=== PATIENT | male | born 1980 | race Two or more races ===

== ENCOUNTER 2020-05-01 13:05 | Emergency (ER) | payer SELFPAY ==
[~2020-05-01] VITALS: Ht 165.1 cm; Wt 86.0 kg
[2020-05-01 14:05] VITALS: BP 155/93
--- NOTE | 2020-05-01 14:59 | PHYS DOC ---
Past Medical History Past Medical History: No Pertinent History Past Surgical History: No Surgical History Smoking Status: Never Smoker Alcohol Use: None General Adult EDM: Chief Complaint: NOSEBLEED HPI: HPI: Patient is a 39 year old male with no significant medical history who presents to the ED today complaining of nosebleeding. Patient reports he picked his nose sometime this morning and started bleeding from the right nose. He states the bleeding stopped and restarted a couple hours later. Patient denies being on any blood thinner. Denies any coughing or congestion. Denies any history of hypertension. Patient is not bleeding in the ED. Review of Systems: Review of Systems: Constitutional: Denies fever or chills. [] Eyes: Denies change in visual acuity. [] HENT: Reports bleeding from the right nose. Denies nasal congestion or sore throat. [] Respiratory: Denies cough or shortness of breath. [] Cardiovascular: Denies chest pain or edema. [] GI: Denies abdominal pain, nausea, vomiting, bloody stools or diarrhea. [] : Denies dysuria. [] Musculoskeletal: Denies back pain or joint pain. [] Integument: Denies rash. [] Neurologic: Denies headache, focal weakness or sensory changes. [] Psychiatric: Denies depression or anxiety. [] Heart Score: Risk Factors: Risk Factors: DM, Current or recent (<one month) smoker, HTN, HLP, family history of CAD, obesity. Risk Scores: Score 0 - 3: 2.5% MACE over next 6 weeks - Discharge Home Score 4 - 6: 20.3% MACE over next 6 weeks - Admit for Clinical Observation Score 7 - 10: 72.7% MACE over next 6 weeks - Early Invasive Strategies Allergies: Allergies: Allergies Coded Allergies Type Severity Reaction Last Updated Verified No Known Drug Allergies 05/01/20 No Physical Exam: PE: Constitutional: Well developed, well nourished, no acute distress, non-toxic appearance. [] HENT: Normocephalic, atraumatic, bilateral external ears normal, oropharynx moist, no oral exudates, Bilateral nasal cavities were examined. The affected nose has no bleeding. Eyes: PERRLA, EOMI, conjunctiva normal, no discharge. [] Neck: Normal range of motion, no tenderness, supple, no stridor. [] Cardiovascular:Heart rate regular rhythm, no murmur [] Lungs & Thorax: Bilateral breath sounds clear to auscultation [] Abdomen: Bowel sounds normal, soft, no tenderness, no masses, no pulsatile masses. [] Skin: Warm, dry, no erythema, no rash. [] Back: No tenderness, no CVA tenderness. [] Extremities: No tenderness, no cyanosis, no clubbing, ROM intact, no edema. [] Neurologic: Alert and oriented X 3, normal motor function, normal sensory function, no focal deficits noted. [] Psychologic: Affect normal, judgement normal, mood normal. [] Current Patient Data: Vital Signs: Vital Signs Date Time Temp Pulse Resp B/P (MAP) Pulse Ox O2 Delivery O2 Flow Rate FiO2 05/01/20 14:05 99.2 102 18 155/93 (113) 99 Room Air 99.2 EKG: EKG: [] Radiology/Procedures: Radiology/Procedures: [] Course & Med Decision Making: Course & Med Decision Making Pertinent Labs and Imaging studies reviewed. (See chart for details) This is a 39-year-old male patient presented to the ED today complaining of nosebleeding from the right nasal cavity that has stopped on arrival to the room, event began after he picked his nose. Discharge to home with Afrin. Educated on how to use it and manage nosebleeds. Provided ENT for follow-up and return precautions. Sheri Disclaimer: Sheri Disclaimer: This electronic medical record was generated, in whole or in part, using a voice recognition dictation system. Departure Departure Impression: Primary Impression: Epistaxis Disposition: 01 DC HOME SELF CARE/HOMELESS Condition: STABLE Referrals: UNKNOWN PCP NAME (PCP) FRANCISCO ZABALA MD follow up in one week Patient Instructions: Nosebleed, [id number] Additional Instructions: You were evaluated for nosebleeding. Use Afrin as directed. Follow-up with the provided specialist in 1 week. Come back to the ED at any point symptoms worsen JANES LAKE APRN May 01, 2020 14:58
[2020-05-01] MEDS ORDERED: OXYMETAZOLINE 0.05% NASAL SPRAY 30ML BOTTLE. NS ONE (15:00)
== END 2020-05-01 15:16 | disposition home or self-care (01) ==
LOC: ER 13:05
DX: R04.0 Epistaxis (principal)
CPT/HCPCS: 99282